=== PATIENT | male | born 1985 | race Caucasian/White ===

== ENCOUNTER 2023-09-26 17:46 | Emergency (ER) | payer BC ==
[~2023-09-26] VITALS: Ht 190.5 cm; Wt 122.5 kg
[2023-09-26] MEDS ORDERED: HYDROCODONE/APAP 5/325MG TABLET PO ONE (18:00)
[2023-09-26] MEDS ORDERED: HYDROCODONE/APAP 5/325MG TABLET ONE (18:01)
[2023-09-26] MEDS ORDERED: HYDR-4209 PO (19:37)
[2023-09-26] MEDS ORDERED: KETO10TA2 PO (19:37)
[2023-09-26] MEDS ORDERED: CYCL5TAB PO (19:37)
[2023-09-26 19:46] VITALS: BP 151/83; TEMP 98.1; O2SAT 98
== END 2023-09-26 19:47 | disposition home or self-care (01) ==
LOC: ER 17:50
DX: M25.552 Pain in left hip (principal); Z79.899 Other long term (current) drug therapy; V49.9XXA Car occupant (driver) (passenger) injured in unspecified traffic accident, initial encounter; Y93.89 Activity, other specified; Y92.89 Other specified places as the place of occurrence of the external cause; Y99.8 Other external cause status
CPT/HCPCS: 73502; 73630-TC